=== PATIENT | female | born 1955 | race Caucasian/White ===

== ENCOUNTER 2022-01-20 12:52 | Observation (INO) ==
[2022-01-20 16:11] LABS: Basophils # 0.1 K/mcL (0.0-0.2); Basophils % 0.4 %; Eosinophils # 0.2 K/mcL (0.0-0.6); Eosinophils % 1.7 %; Hematocrit 33.1 % (35.3-44.9); Hemoglobin 10.6 g/dL (11.5-15.4); Immature Granulocytes % 0.6 % (0-4); Lymphocytes # 4.8 K/mcL (0.6-4.6); Lymphocytes % 37.1 %; Mean Corpuscular Hemoglobin 31.2 pg (28.0-33.3); Mean Corpuscular Volume 97.4 fL (83.0-100.0); Mean Platelet Volume 10.2 fL (9.4-12.4); Monocytes # 0.9 K/mcL (0.0-1.3); Monocytes % 6.7 %; Platelet Count 278 K/mcL (140-400); Red Cell Distribution Width 13.6 % (11.5-14.5); Segmented Neutrophils % 53.5 %
[2022-01-20 16:35] LABS: BUN/Creatinine Ratio 10 (6-26); Blood Urea Nitrogen 21 mg/dL (8-23); Calcium 10.4 mg/dL (8.6-10.3); Carbon Dioxide 23 mEq/L (23-29); Chloride 101 mEq/L (98-107); Glucose 126 mg/dL (70-105); Magnesium 1.5 mg/dL (1.6-2.6); Osmolality,Calculated 287 (280-300); Potassium 3.6 mEq/L (3.5-5.1); Sodium 136 mEq/L (136-145); Troponin I < 0.03 ng/mL (< 0.04)
[2022-01-20] MEDS ORDERED: 0.9 % Sodium Chloride 1,000 ML IVC ONE (16:37)
[2022-01-20] MEDS ORDERED: Ipratropium/Albuterol Neb 3 ML IH PRN (18:05)
[2022-01-20] MEDS ORDERED: Ondansetron 4 MG/2 ML VIAL IVP PRN (18:17)
[2022-01-20] MEDS ORDERED: Naloxone 0.4 MG/ML INJ IVP PRN (18:17)
[2022-01-20] MEDS ORDERED: Acetaminophen 325 MG TABLET PO PRN (18:17)
[2022-01-20] MEDS ORDERED: Melatonin 3 MG TABLET PO PRN (18:17)
[2022-01-20] MEDS ORDERED: MOM Conc 10 ML UD.LIQ PO PRN (18:17)
[2022-01-20] MEDS: Ciprofloxacin/Dex *EAR* Susp 7.5 ML BOTTLE RIGHT EAR SCH ×2 (19:47→20:54)
[2022-01-20] MEDS: Erythromycin OPTH Oint BOTH EYES SCH (20:54)
[2022-01-20] MEDS: 0.9 % Sodium Chloride 1,000 ML IVC SCH (20:54)
[2022-01-20] MEDS: Piperacillin/Tazobactam 3.375 GM in 0.9 % Sodium Chloride Mini Bag 100 ML IVPB SCH (22:07)
[2022-01-20 22:11] LABS: Bacteria,Urine Few per hpf (None-Few); Bilirubin,Urine Negative (Negative); Blood,Urine Negative (Negative); Clarity,Urine Clear (Clear); Color,Urine Light-Yellow (Yellow); Glucose,Urine (UA) Normal (Normal); Hyaline Casts,Urine Few per lpf (None Seen); Ketones,Urine Negative (Negative); Leukocyte Esterase,Urine Large (Negative); Mucus,Urine Few per lpf (None-Few); Nitrite,Urine Negative (Negative); Protein,Urine Negative (Neg-Trace); RBC,Urine 0-3 per hpf (0-3); Squamous Epithelial Cell,Urine Few per hpf (None-Few); Urobilinogen,Urine Normal (Normal); WBC,Urine TNTC per hpf (0-3)
[2022-01-21] MEDS ORDERED: tiZANidine 4 MG TABLET PO ONE (02:08)
[2022-01-21] MEDS: Budesonide/Formoterol 160/4.5 1 PUFF INH IH SCH ×2 (08:01→20:46)
[2022-01-21 08:49] LABS: Basophils % 0.3 %; Eosinophils # 0.1 K/mcL (0.0-0.6); Eosinophils % 1.8 %; Hematocrit 30.9 % (35.3-44.9); Hemoglobin 9.9 g/dL (11.5-15.4); Immature Granulocytes % 0.5 % (0-4); Lymphocytes # 2.4 K/mcL (0.6-4.6); Lymphocytes % 30.3 %; Mean Corpuscular Hemoglobin 30.3 pg (28.0-33.3); Mean Corpuscular Volume 94.5 fL (83.0-100.0); Mean Platelet Volume 9.6 fL (9.4-12.4); Monocytes # 0.6 K/mcL (0.0-1.3); Monocytes % 8.1 %; Neutrophils # 4.7 K/mcL (1.6-8.9); Platelet Count 288 K/mcL (140-400); Red Blood Count 3.27 M/mcL (3.82-4.97); Red Cell Distribution Width 13.6 % (11.5-14.5); White Blood Count 7.9 K/mcL (4.3-11.1)
[2022-01-21] MEDS: Fenofibrate 54 MG TABLET PO SCH (09:02)
[2022-01-21] MEDS: ALPRAZolam 0.5 MG TABLET PO SCH ×2 (09:03→19:33)
[2022-01-21] MEDS: Erythromycin OPTH Oint BOTH EYES SCH ×3 (09:05→19:36)
[2022-01-21] MEDS: Ciprofloxacin/Dex *EAR* Susp 7.5 ML BOTTLE RIGHT EAR SCH ×2 (09:05→19:39)
[2022-01-21 09:09] LABS: Calcium 9.7 mg/dL (8.6-10.3); Potassium 3.6 mEq/L (3.5-5.1)
[2022-01-21] MEDS: Ziprasidone 20 MG CAPSULE PO SCH ×2 (09:09→19:33)
[2022-01-21] MEDS: Artificial Tears SOLN 15 ML BOTTLE BOTH EYES SCH (09:10)
[2022-01-21] MEDS: Piperacillin/Tazobactam 3.375 GM in 0.9 % Sodium Chloride Mini Bag 100 ML IVPB SCH ×2 (11:05→19:34)
[2022-01-21] MEDS: 0.9 % Sodium Chloride 1,000 ML IVC SCH (12:25)
[2022-01-21] MEDS ORDERED: *HR* Labetalol 20 MG/4 ML SYRINGE IVP ONE (17:59)
[2022-01-21] MEDS ORDERED: *HR* Metoprolol 5 MG/5 ML VIAL IVP ONE (20:02)
[2022-01-22] MEDS: 0.9 % Sodium Chloride 1,000 ML IVC SCH (02:13)
[2022-01-22] MEDS: Piperacillin/Tazobactam 3.375 GM in 0.9 % Sodium Chloride Mini Bag 100 ML IVPB SCH (02:24)
[2022-01-22 04:55] LABS: Basophils % 0.3 %; Eosinophils # 0.2 K/mcL (0.0-0.6); Eosinophils % 2.9 %; Hematocrit 30.2 % (35.3-44.9); Hemoglobin 9.7 g/dL (11.5-15.4); Immature Granulocytes % 0.5 % (0-4); Lymphocytes # 2.3 K/mcL (0.6-4.6); Lymphocytes % 36.2 %; Mean Corpuscular HGB Conc 32.1 g/dL (31.6-35.5); Mean Corpuscular Hemoglobin 30.5 pg (28.0-33.3); Mean Platelet Volume 9.7 fL (9.4-12.4); Monocytes # 0.5 K/mcL (0.0-1.3); Monocytes % 8.6 %; Neutrophils # 3.2 K/mcL (1.6-8.9); Platelet Count 255 K/mcL (140-400); Red Blood Count 3.18 M/mcL (3.82-4.97); Red Cell Distribution Width 13.7 % (11.5-14.5); Segmented Neutrophils % 51.5 %; White Blood Count 6.3 K/mcL (4.3-11.1)
[2022-01-22 05:18] LABS: Calcium 9.5 mg/dL (8.6-10.3); Potassium 3.5 mEq/L (3.5-5.1)
[2022-01-22 07:28] VITALS: BP 188/95; PULSE 85; TEMP 97.9
[2022-01-22] MEDS: Budesonide/Formoterol 160/4.5 1 PUFF INH IH SCH (08:00)
[2022-01-22 08:01] VITALS: O2SAT 94
[2022-01-22] MEDS ORDERED: hydroCHLOROthiazide 25 MG TABLET PO STA (09:30)
[2022-01-22] MEDS: Ziprasidone 20 MG CAPSULE PO SCH (10:02)
[2022-01-22] MEDS: ALPRAZolam 0.5 MG TABLET PO SCH (10:04)
[2022-01-22] MEDS: Valsartan 160 MG TABLET PO STA ×2 (10:05→10:06)
[2022-01-22] MEDS: Fenofibrate 54 MG TABLET PO SCH (10:07)
[2022-01-22] MEDS: Artificial Tears SOLN 15 ML BOTTLE BOTH EYES SCH (10:08)
[2022-01-22] MEDS: Ciprofloxacin/Dex *EAR* Susp 7.5 ML BOTTLE RIGHT EAR SCH (10:08)
[2022-01-22] MEDS: Erythromycin OPTH Oint BOTH EYES SCH (10:08)
== END 2022-01-22 11:42 | disposition home health service (06) ==
LOC: EMEROOARM 12:52 → 3ANU 12:52 → SUATTDRO 17:41 → 3ANU 18:28
PROVIDERS: ADMIT Internal Medicine; ATTEND Family Medicine